=== PATIENT | male | born 1945 | race Caucasian/White ===

== ENCOUNTER 2021-05-08 10:31 | Observation (INO) ==
[~2021-05-08 10:31] MED LIST: Buffered Lidocaine 1% SYRIN 1 ml INTRADERM ONE; Lactated Ringers 1000 ml BAG 1,000 ML IV SCH
[2021-05-08] MEDS ORDERED: Buffered Lidocaine 1% SYRIN 1 ml INTRADERM ONE (11:07)
[2021-05-08] MEDS ORDERED: Lidocaine 2% PF 5 ML VIAL ONE (11:29)
[2021-05-08] MEDS ORDERED: Rocuronium 50 mg VIAL 10 mg/ml 5 ml VIAL (50 mg) ONE ×2 (11:29→13:51)
[2021-05-08] MEDS ORDERED: fentaNYL 100 mcg/2 ml 50 MCG/ML VIAL ONE (11:29)
[2021-05-08] MEDS ORDERED: Ondansetron 4 mg VIAL 2 MG/ML 2 ml VIAL ONE (11:29)
[2021-05-08] MEDS ORDERED: fentaNYL 250 mcg/5 ml 50 MCG/ML 5 ml VIAL (250 MCG) ONE (11:29)
[2021-05-08] MEDS ORDERED: Dexamethasone IV 4 MG/ML VIAL 1 ml VIAL ONE (11:29)
[2021-05-08] MEDS ORDERED: Propofol 10 MG/ML 20 ML BTL ONE (11:29)
[2021-05-08] MEDS ORDERED: Midazolam 2 mg/2 ml VIAL 1 mg/ml 2 ml VIAL (2 mg) ONE (11:29)
[2021-05-08] MEDS ORDERED: Lidocaine 1% w EPI 1:200,000 SDV 30 ML VIAL ONE (11:40)
[2021-05-08] MEDS ORDERED: Thrombin 5,000 UNITS 1 APPLIC KIT - topical use - TOPICAL ONE (11:40)
[2021-05-08] MEDS ORDERED: ceFAZolin VIAL VIAL ONE (11:41)
[2021-05-08] MEDS ORDERED: Gelfoam Sponge SIZE 100 SPONGE ONE (11:41)
[2021-05-08] MEDS ORDERED: ceFAZolin 2 GM in NS PREMIX 2 GM/100 ML BAG IVPB ONE (11:47)
[2021-05-08] MEDS ORDERED: Sevoflurane BOTTLE ONE (13:35)
[2021-05-08] MEDS ORDERED: Lactated Ringers 1000 ml BAG 1,000 ML IV SCH (15:00)
[2021-05-08] MEDS ORDERED: Albuterol HFA INHALER 8 gm MDI INH PRN (15:01)
[2021-05-08] MEDS ORDERED: DiMENhydriNATE IV 50 mg/ml 1 ml VIAL IV PUSH PRN (15:20)
[2021-05-08] MEDS ORDERED: Naloxone 0.4 mg VIAL 0.4 mg/ml 1 ml VIAL IV PRN (15:20)
[2021-05-08] MEDS ORDERED: fentaNYL 100 mcg/2 ml 50 MCG/ML VIAL IV PRN (15:20)
[2021-05-08] MEDS ORDERED: DiMENhydriNATE IV 50 mg/ml 1 ml VIAL ONE (15:26)
[2021-05-08] MEDS: Aspirin EC 81 mg TAB.EC (enteric coated) PO SCH (22:41)
[2021-05-08] MEDS: Isosorbide Mononit ER 30mg TAB PO SCH (22:45)
[2021-05-09 08:37] LABS: ABS Basophils 0.1 10^3/ul (0-0.2); ABS Lymphocytes 1.4 10^3/ul (1.0-4.8); ABS Monocytes 0.8 10^3/ul (0-0.8); Eosinophil % 0.4 %; Hematocrit 38 % (42-52); Hemoglobin 12.7 g/dL (14.0-18.0); Lymphocyte % 11.1 %; Mean Corpuscular HGB Conc 34 g/dL (31-36); Mean Corpuscular Hemoglobin 33 pg (27-31); Mean Corpuscular Volume 97 fL (80-94); Mean Platelet Volume 8.4 fL (7.4-10.4); Platelet Count 179 10^3/uL (150-450); Red Blood Count 3.88 10^6 /uL (4.18-5.48); Red Cell Distribution Width 13 % (10-15); White Blood Count 12.4 10^3/uL (3.5-10.8)
[2021-05-09] MEDS: Isosorbide Mononit ER 30mg TAB PO SCH (21:41)
[2021-05-09] MEDS: Aspirin EC 81 mg TAB.EC (enteric coated) PO SCH (21:41)
[2021-05-10 08:11] VITALS: BP 100/65
== END 2021-05-10 11:45 | disposition home or self-care (01) ==
LOC: SSU 10:31 → OR 10:31
PROVIDERS: ADMIT Neurological Surgery; ATTEND Neurological Surgery